=== PATIENT | female | born 1970 | race Caucasian/White ===

== ENCOUNTER 2024-02-13 14:49 | Day surgery (SDC) | payer OTHER ==
[2024-02-13 15:01] LABS: HCG URINE TEST NEGATIVE (NEGATIVE)
== END 2024-02-13 15:20 ==
LOC: SDC-PAIN 14:49
PROVIDERS: ATTEND Psychiatry & Neurology Pain Medicine
DX: Z53.8 Procedure and treatment not carried out for other reasons (principal); E11.65 Type 2 diabetes mellitus with hyperglycemia
CPT/HCPCS: 81025; 82947

== ENCOUNTER 2024-03-05 15:25 | Day surgery (SDC) | payer OTHER ==
[2024-03-05] MEDS ORDERED: Decadron 4 MG INJ IV ONE (15:26)
[2024-03-05] MEDS ORDERED: Sodium Chloride 0.9(Preservative Free) 10 ML IJ ONE (15:26)
[2024-03-05] MEDS ORDERED: LIDOCAINE HCL 1% AMPUL 5 ML IJ ONE (15:26)
[2024-03-05 16:24] LABS: HCG URINE TEST NEGATIVE (NEGATIVE)
[2024-03-05] MEDS ORDERED: Lactated Ringers 1,000 ML IV ONE (17:51)
--- NOTE | 2024-03-05 18:59 | XRAY ---
Indication: Cervical AMANDA. Intraoperative fluoroscopy provided for 33 seconds. 3 digital spot image submitted for interpretation demonstrates posterior needle tip projecting posterior to cervical thoracic junction. Small amount of contrast injected for needle tip placement. Correlate with intraoperative findings/report.
--- NOTE | 2024-03-06 09:30 | XRAY ---
33 seconds of fluoroscopy was used in surgery for a cervical AMANDA.
== END 2024-03-05 18:21 | disposition home or self-care (01) ==
LOC: SDC-PAIN 15:25
PROVIDERS: ATTEND Psychiatry & Neurology Pain Medicine
DX: M54.12 Radiculopathy, cervical region (principal); E11.9 Type 2 diabetes mellitus without complications
CPT/HCPCS: 62321; 72040; 77003; 81025; 82947; J1100; Q9966

== ENCOUNTER 2024-04-16 09:55 | Day surgery (SDC) | payer OTHER ==
[2024-04-16] MEDS ORDERED: Depo-Medrol 40 MG/ML IM ONE (09:56)
[2024-04-16] MEDS ORDERED: BUPIVACAINE 0.5% VIAL IJ ONE (09:56)
[2024-04-16 11:22] LABS: HCG URINE TEST NEGATIVE (NEGATIVE)
[2024-04-16] MEDS ORDERED: DIPRIVAN 200 MG/20 ML IV ONE (12:39)
[2024-04-16] MEDS ORDERED: ROBINUL ONE (12:50)
--- NOTE | 2024-04-16 14:22 | XRAY ---
Indication: Bilateral greater trochanter bursa injection. Intraoperative fluoroscopy provided for 27 seconds. 3 digital spot image submitted for interpretation demonstrates needle tips projecting lateral to left and right greater trochanters. Small amount of contrast injected for both needle tip placement. Correlate with intraoperative findings/report.
--- NOTE | 2024-04-16 14:23 | XRAY ---
27 seconds of fluoroscopy was used in surgery for a bilateral greater trochanteric bursa injection.
== END 2024-04-16 13:10 | disposition home or self-care (01) ==
LOC: SDC-PAIN 09:55
PROVIDERS: ATTEND Psychiatry & Neurology Pain Medicine
DX: M70.62 Trochanteric bursitis, left hip (principal); M70.61 Trochanteric bursitis, right hip; E11.9 Type 2 diabetes mellitus without complications
CPT/HCPCS: 20610; 73521; 77002; 81025; 82947; J2704; Q9966

== ENCOUNTER 2024-06-18 08:16 | Day surgery (SDC) | payer OTHER ==
[2024-06-18] MEDS ORDERED: LIDOCAINE HCL 2% 100 MG/5 ML IJ ONE (08:17)
[2024-06-18] MEDS ORDERED: propofoL IV ONE ×2 (09:23→10:00)
[2024-06-18 09:31] LABS: HCG URINE TEST NEGATIVE (NEGATIVE)
--- NOTE | 2024-06-18 11:46 | XRAY ---
Indication: Bilateral L4-S1 MBB. Intraoperative fluoroscopy provided for 16 seconds. Single digital spot image submitted for interpretation demonstrates posterior needle tips projecting over the expected left and right L4-S1 nerve roots. Correlate with intraoperative findings/report.
--- NOTE | 2024-06-18 12:55 | XRAY ---
16 seconds of fluoroscopy was used in surgery for a bilateral L4-S1 MBB.
== END 2024-06-18 10:20 | disposition home or self-care (01) ==
LOC: SDC-PAIN 08:16
PROVIDERS: ATTEND Psychiatry & Neurology Pain Medicine
DX: M47.816 Spondylosis without myelopathy or radiculopathy, lumbar region (principal); E11.9 Type 2 diabetes mellitus without complications
CPT/HCPCS: 64493; 64494; 72020; 77002; 81025; 82947; J2704

== ENCOUNTER 2024-10-01 08:49 | Day surgery (SDC) | payer OTHER ==
[2024-10-01] MEDS ORDERED: Depo-Medrol 40 MG/ML IM ONE (08:50)
[2024-10-01] MEDS ORDERED: BUPIVACAINE 0.5% VIAL IJ ONE (08:50)
[2024-10-01 10:04] LABS: HCG URINE TEST NEGATIVE (NEGATIVE)
[2024-10-01] MEDS ORDERED: propofoL IV ONE ×2 (11:34→11:40)
[2024-10-01] MEDS ORDERED: Lactated Ringers 1,000 ML IV ONE (12:18)
--- NOTE | 2024-10-01 12:37 | XRAY ---
Indication: Bilateral greater trochanter bursa injection. Intraoperative fluoroscopy provided for 21 seconds. 2 digital spot images submitted for interpretation demonstrates needle tips projecting lateral to left and right greater trochanters. Small amount of contrast injected for both needle placement. Correlate with intraoperative findings/report.
--- NOTE | 2024-10-01 13:07 | XRAY ---
21 seconds of fluoroscopy was used in surgery for a bilateral greater trochanteric bursa injection.
== END 2024-10-01 12:10 | disposition home or self-care (01) ==
LOC: SDC-PAIN 08:49
PROVIDERS: ATTEND Psychiatry & Neurology Pain Medicine
DX: M70.62 Trochanteric bursitis, left hip (principal); M70.61 Trochanteric bursitis, right hip; E11.9 Type 2 diabetes mellitus without complications
CPT/HCPCS: 20610; 73521; 77002; 81025; 82947; J2704; Q9966

== ENCOUNTER 2025-02-11 06:52 | Day surgery (SDC) | payer OTHER ==
[2025-02-11] MEDS ORDERED: BUPIVACAINE 0.5% VIAL IJ ONE (06:53)
[2025-02-11] MEDS ORDERED: LIDOCAINE HCL 1% 50 MG/5 ML VL IJ ONE (06:53)
[2025-02-11 08:36] LABS: HCG URINE TEST NEGATIVE (NEGATIVE)
[2025-02-11] MEDS ORDERED: propofoL IV ONE ×2 (09:18→09:23)
[2025-02-11] MEDS ORDERED: Lactated Ringers 1,000 ML IV ONE (10:40)
--- NOTE | 2025-02-11 11:48 | XRAY ---
Indication: Left L4-S1 RFA. Intraoperative fluoroscopy provided for 34 seconds. 5 digital spot image submitted for interpretation demonstrates posterior needle tips projecting over expected left L4-S1 nerve roots. Correlate with intraoperative findings/report.
--- NOTE | 2025-02-11 12:16 | XRAY ---
34 seconds of fluoroscopy was used in surgery for a left L4-S1 RFA.
== END 2025-02-11 10:00 | disposition home or self-care (01) ==
LOC: SDC-PAIN 06:52
PROVIDERS: ATTEND Psychiatry & Neurology Pain Medicine
DX: M47.817 Spondylosis without myelopathy or radiculopathy, lumbosacral region (principal); E11.9 Type 2 diabetes mellitus without complications